=== PATIENT | female | born 1990 | race Caucasian/White ===

== ENCOUNTER 2017-03-14 12:17 | Emergency (ER) | payer SELFPAY ==
[~2017-03-14] VITALS: Ht 167.6 cm; Wt 90.7 kg
[~2017-03-14 12:17] MED LIST: BC; BCP; DIAZ-1 PO; IBU600 PO; LOR5/325 PO; NORG1TAB76 PO; SPIR25TA76 PO
--- NOTE | 2017-03-14 12:54 | ER Report ---
History and Physical Time Seen By MD: 12:53 Hx. of Stated Complaint: pt reports SI, lost job and housing in September, lives with parents. feels like a burden to parents, no plan. HPI/ROS CHIEF COMPLAINT: Suicidal ideation HISTORY OF PRESENT ILLNESS: 27-year-old female patient presents to emergency room with complaint of suicidal ideation. Patient states she's been having a hard several months. She states that she quit her job in September. She states that she is not been able see her specialists since he is moved. She states that she was seeing him for her PCOS. She states that she's been having some difficulties with her parents. She states she is feeling like she is just a drag for her parents. She states that she does not have a plan to commit suicide. She states that she would like to be admitted for evaluation. She states she has seen a counselor in the past but has not been able to keep up with that due to cost. REVIEW OF SYSTEMS: Respiratory: No cough, no dyspnea. Cardiovascular: No chest pain, no palpitations. Gastrointestinal: No vomiting, no abdominal pain. Musculoskeletal: No back pain. Allergies: Coded Allergies: No Known Allergies (Unverified Allergy, Mild, 04/19/08) Home Meds Reported Medications Spironolactone (ALDACTONE) 25 Mg Tablet, 25 MG PO QDAY 04/20/13 [Bc] No Conflict Check 04/20/13 Past Medical/Surgical History Patient has a past medical history of pneumonia, PCOS, depression. Patient denies any surgical history. Patient has a family medical history of CAD, stroke, diabetes. Reviewed Nurses Notes: Yes Hx Smoking: No Hx Substance Use Disorder: No Hx Alcohol Use: No Constitutional Vital Sign - Last 24 Hours 03/14/17 03/14/17 12:20 14:30 Temp 98.1 Pulse 108 79 Resp 16 16 B/P (MAP) 141/81 126/78 (94) Pulse Ox 94 94 O2 Delivery Room Air Room Air Physical Exam General Appearance: The patient is alert, has no immediate need for airway protection and no current signs of toxicity. ENT: Tympanic membranes are pearly-mejia, auditory canals are patent, mucous membranes are moist. Respiratory: Chest is non tender, lungs are clear to auscultation. Cardiac: regular rate and rhythm Gastrointestinal: Abdomen is soft and non tender, no masses, bowel sounds normal. Musculoskeletal: Neck: Neck is supple and non tender. Extremities have full range of motion and are non tender. Skin: No rashes or lesions. Psych: Patient maintains good eye contact, she is tearful when talking about her family. DIFFERENTIAL DIAGNOSIS: After history and physical exam differential diagnosis was considered for depression, suicidal ideation. Medical Decision Making Data Points Result Diagram: 03/14/17 1322 03/14/17 1322 Laboratory Hematology Test 03/14/17 13:10 03/14/17 13:22 Urine Color Straw Urine Clarity Clear Urine pH 6.0 pH (4.8-9.5) Urine Specific [place] 1.009 Urine Protein Negative mg/dL (NEGATIVE) Urine Glucose (UA) Negative mg/dL (NEGATIVE) Urine Ketones Negative mg/dL (NEGATIVE) Urine Blood Negative (NEGATIVE) Urine Nitrite Negative (NEGATIVE) Urine Bilirubin Negative (NEGATIVE) Urine Urobilinogen Negative mg/dL (0.2-1.9) Urine Leukocyte Esterase Small (NEGATIVE) Urine RBC 1 /HPF (0-2/HPF) Urine WBC 11 /HPF (0-5/HPF) Urine Squamous Epithelial Cells Many /LPF (</=FEW) Urine Bacteria Few /HPF (NONE-FEW) Urine Mucus None /HPF (NONE-FEW) Urine HCG, Qualitative Negative (NEGATIVE) Urine Opiates Screen Negative Urine Barbiturates Screen Negative Ur Tricyclic Antidepressants Screen Negative Urine Phencyclidine Screen Negative Urine Amphetamines Screen Negative Urine Benzodiazepines Screen Negative Urine Cocaine Screen Negative Urine Cannabinoids Screen Negative Red Blood Count 4.95 M/uL (4.17-5.56) Mean Corpuscular Volume 89.0 fL (80.0-96.0) Mean Corpuscular Hemoglobin 30.5 pg (26.0-33.0) Mean Corpuscular Hemoglobin Concent 34.2 g/dL (32.0-36.0) Red Cell Distribution Width 13.5 % (11.5-14.5) Mean Platelet Volume 8.3 fL (7.2-11.1) Neutrophils (%) (Auto) 63.7 % (39.4-72.5) Lymphocytes (%) (Auto) 24.7 % (17.6-49.6) Monocytes (%) (Auto) 9.4 % (4.1-12.4) Eosinophils (%) (Auto) 1.3 % (0.4-6.7) Basophils (%) (Auto) 0.9 % (0.3-1.4) Nucleated RBC Relative Count (auto) 0.1 /100WBC Neutrophils # (Auto) 6.2 K/uL (2.0-7.4) Lymphocytes # (Auto) 2.4 K/uL (1.3-3.6) Monocytes # (Auto) 0.9 K/uL (0.3-1.0) Eosinophils # (Auto) 0.1 K/uL (0.0-0.5) Basophils # (Auto) 0.1 K/uL (0.0-0.1) Nucleated RBC Absolute Count (auto) 0.01 K/uL Sodium Level 139 mmol/L (137-145) Potassium Level 3.7 mmol/L (3.5-5.0) Chloride Level 102 mmol/L (98-107) Carbon Dioxide Level 25 mmol/L (22-31) Blood Urea Nitrogen 8 mg/dl (7-18) Creatinine 0.70 mg/dl (0.52-1.04) Glomerular Filtration Rate Calc > 60.0 Random Glucose 119 mg/dl (75-110) Calcium Level 9.5 mg/dl (8.4-10.2) Magnesium Level 2.0 mg/dl (1.7-2.2) Total Bilirubin 0.3 mg/dl (0.2-1.3) Aspartate Amino Transf (AST/SGOT) 24 U/L (0-35) Alanine Aminotransferase (ALT/SGPT) 42 U/L (0-56) Alkaline Phosphatase 73 U/L (0-126) Total Protein 8.1 gm/dl (6.3-8.2) Albumin 4.5 g/dl (3.5-5.0) Thyroid Stimulating Hormone (TSH) 1.20 uIU/ml (0.46-4.68) Salicylates Level < 10 mg/L Salicylate Last Dose Date unk Acetaminophen Level < 10 ug/ml Serum Alcohol < 10 mg/dl Chemistry Test 03/14/17 13:10 03/14/17 13:22 Urine Color Straw Urine Clarity Clear Urine pH 6.0 pH (4.8-9.5) Urine Specific [place] 1.009 Urine Protein Negative mg/dL (NEGATIVE) Urine Glucose (UA) Negative mg/dL (NEGATIVE) Urine Ketones Negative mg/dL (NEGATIVE) Urine Blood Negative (NEGATIVE) Urine Nitrite Negative (NEGATIVE) Urine Bilirubin Negative (NEGATIVE) Urine Urobilinogen Negative mg/dL (0.2-1.9) Urine Leukocyte Esterase Small (NEGATIVE) Urine RBC 1 /HPF (0-2/HPF) Urine WBC 11 /HPF (0-5/HPF) Urine Squamous Epithelial Cells Many /LPF (</=FEW) Urine Bacteria Few /HPF (NONE-FEW) Urine Mucus None /HPF (NONE-FEW) Urine HCG, Qualitative Negative (NEGATIVE) Urine Opiates Screen Negative Urine Barbiturates Screen Negative Ur Tricyclic Antidepressants Screen Negative Urine Phencyclidine Screen Negative Urine Amphetamines Screen Negative Urine Benzodiazepines Screen Negative Urine Cocaine Screen Negative Urine Cannabinoids Screen Negative White Blood Count 9.7 k/uL (4.5-11.0) Red Blood Count 4.95 M/uL (4.17-5.56) Hemoglobin 15.1 g/dL (12.0-16.0) Hematocrit 44.1 % (34.0-47.0) Mean Corpuscular Volume 89.0 fL (80.0-96.0) Mean Corpuscular Hemoglobin 30.5 pg (26.0-33.0) Mean Corpuscular Hemoglobin Concent 34.2 g/dL (32.0-36.0) Red Cell Distribution Width 13.5 % (11.5-14.5) Platelet Count 358 K/uL (150-450) Mean Platelet Volume 8.3 fL (7.2-11.1) Neutrophils (%) (Auto) 63.7 % (39.4-72.5) Lymphocytes (%) (Auto) 24.7 % (17.6-49.6) Monocytes (%) (Auto) 9.4 % (4.1-12.4) Eosinophils (%) (Auto) 1.3 % (0.4-6.7) Basophils (%) (Auto) 0.9 % (0.3-1.4) Nucleated RBC Relative Count (auto) 0.1 /100WBC Neutrophils # (Auto) 6.2 K/uL (2.0-7.4) Lymphocytes # (Auto) 2.4 K/uL (1.3-3.6) Monocytes # (Auto) 0.9 K/uL (0.3-1.0) Eosinophils # (Auto) 0.1 K/uL (0.0-0.5) Basophils # (Auto) 0.1 K/uL (0.0-0.1) Nucleated RBC Absolute Count (auto) 0.01 K/uL Glomerular Filtration Rate Calc > 60.0 Calcium Level 9.5 mg/dl (8.4-10.2) Magnesium Level 2.0 mg/dl (1.7-2.2) Total Bilirubin 0.3 mg/dl (0.2-1.3) Aspartate Amino Transf (AST/SGOT) 24 U/L (0-35) Alanine Aminotransferase (ALT/SGPT) 42 U/L (0-56) Alkaline Phosphatase 73 U/L (0-126) Total Protein 8.1 gm/dl (6.3-8.2) Albumin 4.5 g/dl (3.5-5.0) Thyroid Stimulating Hormone (TSH) 1.20 uIU/ml (0.46-4.68) Salicylates Level < 10 mg/L Salicylate Last Dose Date unk Acetaminophen Level < 10 ug/ml Serum Alcohol < 10 mg/dl Toxicology Test 03/14/17 13:10 03/14/17 13:22 Urine Opiates Screen Negative Urine Barbiturates Screen Negative Ur Tricyclic Antidepressants Screen Negative Urine Phencyclidine Screen Negative Urine Amphetamines Screen Negative Urine Benzodiazepines Screen Negative Urine Cocaine Screen Negative Urine Cannabinoids Screen Negative Salicylates Level < 10 mg/L Salicylate Last Dose Date unk Acetaminophen Level < 10 ug/ml Serum Alcohol < 10 mg/dl Urinalysis Test 03/14/17 13:10 Urine Color Straw Urine Clarity Clear Urine pH 6.0 pH (4.8-9.5) Urine Specific [place] 1.009 Urine Protein Negative mg/dL (NEGATIVE) Urine Glucose (UA) Negative mg/dL (NEGATIVE) Urine Ketones Negative mg/dL (NEGATIVE) Urine Blood Negative (NEGATIVE) Urine Nitrite Negative (NEGATIVE) Urine Bilirubin Negative (NEGATIVE) Urine Urobilinogen Negative mg/dL (0.2-1.9) Urine Leukocyte Esterase Small (NEGATIVE) Urine RBC 1 /HPF (0-2/HPF) Urine WBC 11 /HPF (0-5/HPF) Urine Squamous Epithelial Cells Many /LPF (</=FEW) Urine Bacteria Few /HPF (NONE-FEW) Urine Mucus None /HPF (NONE-FEW) Urine HCG, Qualitative Negative (NEGATIVE) ED Course/Re-evaluation ED Course Patient was admitted exam room, his score obtained. Difficult diagnoses were considered. On examination patient is maintaining good eye contact, rate of speech is appropriate. Patient would become very tearful when talking about her family. The lab work for a behavioral health admission were done. The results were unremarkable. I discussed the case with Dr. Akers, psychiatrist, who did agree to accept the patient for admission. Decision to Disposition Date: Mar 14, 2017 Decision to Disposition Time: 14:16 Depart Departure Latest Vital Signs Vital Signs Date Time Temp Pulse Resp B/P (MAP) Pulse Ox O2 Delivery O2 Flow Rate FiO2 03/14/17 14:30 79 16 126/78 (94) 94 Room Air 03/14/17 12:20 98.1 Impression: Primary Impression: Depression with suicidal ideation Condition: Condition Unchanged Disposition: XFER TO [facility] Referrals: CAITLIN JESUS (PCP) MARTINA DIAZ Mar 14, 2017 12:54
[2017-03-14 13:32] LABS: PLATELET COUNT, AUTOMATED 358 K/uL (150-450)
[2017-03-14 14:30] VITALS: BP 126/78
== END 2017-03-14 14:35 ==
LOC: ER 12:43
DX: F32.9 Major depressive disorder, single episode, unspecified (principal); R45.851 Suicidal ideations
CPT/HCPCS: 36415; 80305; 80320; 80329; 81001; 81025; 82040; 82247; 82310; 82374; 82435; 82565; 82947; 83735; 84075; 84132; 84155; 84295; 84443; 84450; 84460; 84520; 85025; 99285

== ENCOUNTER 2017-03-14 14:21 | Inpatient (IN) | payer SELFPAY ==
[~2017-03-14] VITALS: Ht 167.6 cm; Wt 90.7 kg
[2017-03-14] MEDS ORDERED: ACETAMINOPHEN 325 MG TAB PO PRN (14:50)
[2017-03-14] MEDS ORDERED: MAG HYD/AL HYD/SIMETH 30ML UDC PO PRN (14:50)
[2017-03-14 16:25] VITALS: BP 124/93
[2017-03-15 05:54] VITALS: BP 130/77
[2017-03-15] MEDS: MULTIVITAMINS PO SCH (08:33)
--- NOTE | 2017-03-15 17:07 | HISTORY AND PHYSICAL ---
DATE OF ADMISSION: March 14, 2017 PRESENTING PROBLEM/CHIEF COMPLAINT "I felt really depressed." HISTORY OF PRESENT ILLNESS This is a 27-year-old single female who was interviewed on the morning of 15 March 2017 at approximately 0900 hours. The patient was admitted the previous evening through the emergency room having increasing depression with suicidal ideations with no specific plan. The patient was admitted without incident, and the next morning, the patient was interacting very well with this provider and other treatment team staff. The patient was tearful at times when describing how she has "fights with her parents" with whom she lives. She feels "hopeless" at times. She reports multiple identifiable stressors, including the loss of her job at [employer] in August of last year where she quit after feeling threatened at work. The patient has been unable to find employment. This has resulted in parental conflict. She had to move back in with her parents. The patient also reports a breakup of a relationship that was ongoing for four years. They did not live together, although the patient reports that she felt they had a close relationship, and he spontaneously moved away to [place], and this is an ongoing concern as well. The patient reports financial struggles and that she would "like to go back to school and maybe be a graphic technician," but does not know how to be able to afford it. When asked about depressive symptoms, the patient reports vague depressive symptoms overall. She continues to have interest in playing on the computer and overall denying any significant depressive symptoms. She does say her mood has been down, but this seems to be largely related to the aforementioned identifiable stressors. The patient does report it is hard for her to go to sleep at times, and she does have a sister who is being evaluated for sleep apnea. The patient does admit to feeling overall anxious and being a generalized worrier, including having panic attack-like symptoms when under stressful situations. The patient had recently started a job at [employer]; however, she was unable to complete orientation where she became very anxious and had to quit. The patient denies any PTSD, psychosis, or manic behavior. The patient reports some excessive fears of being lost when she drives to another town. She denies any anorexia, bulimia, OCD, self-harm issues, and she denies any specific somatization symptoms other than emotional distress which includes tearfulness when under stress. MENTAL HEALTH HISTORY The patient has been an inpatient twice on Behavioral Health, although both were brief here at [facility] before, and she left the next day. However , the preceding symptoms seemed to be similar in that she was in conflict with her parents. The patient was prescribed Zoloft in the past which made her reportedly drowsy, and she did not stay on it very long and noticed no benefit. The patient reports having financial limitations to where she cannot afford medications, and this is a grave concern. She has had minimal outpatient therapy in the past, but is not engaged in any now. No history of suicide attempt. FAMILY PSYCHIATRIC HISTORY The patient reports previously that she had a paternal uncle with bipolar disorder, and he had a suicide attempt. No other alcohol or drug abuse or psychiatric concerns in the family. PAST MEDICAL HISTORY Significant for history of polycystic ovarian syndrome. The patient is currently not taking spironolactone that has been prescribed in the past. She denies any other physical ailments. ALLERGIES She has no allergies. SOCIAL HISTORY The patient was born in [place], [place], and raised in [place], [place]. Parents were at the time of her and remained . She has one older sister, most recently living in [place], [place], whom she does not have much contact with. The patient reports her older sister is doing well. The patient has been living with her parents over the last few months as she could not afford to live independently after losing her job working at [employer]. Before that, the patient had worked at the [employer] as a [place] [employer]. The patient graduated from [employer] and attended the [employer]. She received her bachelor's degree in communication. She has never , has no children. She reports her childhood was free of any emotional, physical, or sexual abuse. LEGAL HISTORY None. SUBSTANCE ABUSE HISTORY The patient denies any current abuse of alcohol, nicotine, or illicit substances. The patient does report she may drink too much soda pop. PHYSICAL EXAMINATION Please see emergency room note. Notable for: GENERAL: Polite, cooperative, 27-year-old female. No acute medical distress. Depressed appearing. VITAL SIGNS: Temperature 98.1, pulse 108, respiratory rate 16, blood pressure 141/81, and pulse oximetry 94% on room air. LABORATORY DATA 1. CBC unremarkable. 2. CMP overall unremarkable as well. Random glucose was slightly elevated at 119. 3. TSH 1.20. 4. Urinalysis notable for small leukocyte esterase and 11 white blood cells. Culture is pending. 5. Negative screen. 6. Toxicology screen negative with an undetectable serum alcohol level. MENTAL STATUS EXAMINATION GENERAL APPEARANCE, BEHAVIOR, AND ATTITUDE: This is a heavyset 27-year-old female making partial eye contact at times. The patient is tearful, very cooperative and pleasant. The patient is interacting well. Well groomed. SPEECH: Within normal limits. Regular rate, rhythm, volume, and tone. MOOD: Described as anxious and depressed. AFFECT: Minimally constricted and mood congruent. THOUGHT PROCESSES: Appear goal directed, logical. The patient was inquiring about vocational rehab, denying loose associations or flight of ideas. THOUGHT CONTENT: Free of auditory or visual hallucinations, ideas of reference , thought broadcasting, delusions, obsessions, or compulsions. The patient is admitting to overwhelming anxiety turning into depression and with the onset of suicidal thoughts with no specific plan. The patient is not having any homicidal ideations. SENSORIUM: Clear. COGNITION: Alert and oriented to person, place, time, and situation. MEMORY: Immediate, recent, and remote estimated intact. INTELLIGENCE: Average based on interview. INSIGHT AND JUDGMENT: Considered grossly intact. The patient presenting for treatment after suicidal ideation ensued. ASSESSMENT This is a very polite, cooperative, 27-year-old female who appears to have underlying anxiety disorder which inhibits such things as her ability to drive out of town, and this probably also inhibits her ability to find adequate employment. This may result in the patient having to live at home which is an additional stressor. At this time, we will try Paxil at bedtime and continue to evaluate. The patient will participate in therapy. DIAGNOSES 1. Generalized anxiety disorder. 2. Parent/child conflict. 3. Adjustment disorder with anxious and depressed mood. 4. Multiple social stressors, financial, unemployment, some social isolation likely. PLAN 1. Admit to the unit. 2. Necessary precautions will be implemented. 3. The patient will participate in individual and group therapy. 4. Medications will be addressed and titrated accordingly. I will give a trial of Paxil for overall anxiety control at night. 5. Collateral information will be obtained if necessary. 6. Estimated length of stay is three to five days. MTDD
[2017-03-15] MEDS: DIAZEPAM 10 MG TAB PO ONE ×2 (20:30→21:07)
[2017-03-15] MEDS: PAROXETINE HCL 10 MG TABLET PO SCH ×2 (21:00→21:06)
[2017-03-16 05:52] VITALS: BP 113/72
[2017-03-16] MEDS: MULTIVITAMINS PO SCH ×2 (08:20→08:27)
--- NOTE | 2017-03-16 10:28 | BHS Progress Note ---
S - Subjective Progress Notes Subjective Patient frustrated today, and indicating ongoing stressors related to living with her parents. Patient simultaneously regressing psychologically while living at home. Parents indicate patient had excellent grades, did accomplish a four year degree, and has had periods of extended employment. Patient's parents are questioning whether it is helpful for her to return home. Patient anxious but rejecting Paxil, and overnight pulse oximetry, last evening. Patient argumentative, putting a lot of energy into rejecting care. Will continue to work with her today to address placement, and how she can resolve anxiety. Suicidal Ideation: Resolving Homicidal Ideation: None S - Objective Physical Exam Vital Signs Vital Signs Date Time Temp Pulse Resp B/P (MAP) Pulse Ox O2 Delivery O2 Flow Rate FiO2 03/16/17 05:52 98.7 91 16 113/72 (86) 94 Room Air Hematology Test 03/15/17 11:40 Urine Color Yellow Urine Clarity Slightly-cloudy Urine pH 6.0 pH (4.8-9.5) Urine Specific [place] 1.021 Urine Protein Negative mg/dL (NEGATIVE) Urine Glucose (UA) Negative mg/dL (NEGATIVE) Urine Ketones Negative mg/dL (NEGATIVE) Urine Blood Negative (NEGATIVE) Urine Nitrite Negative (NEGATIVE) Urine Bilirubin Negative (NEGATIVE) Urine Urobilinogen Negative mg/dL (0.2-1.9) Urine Leukocyte Esterase Negative (NEGATIVE) Urine RBC None /HPF (0-2/HPF) Urine WBC 1 /HPF (0-5/HPF) Urine Squamous Epithelial Cells Many /LPF (</=FEW) Urine Bacteria Negative /HPF (NONE-FEW) Urine Mucus Few /HPF (NONE-FEW) Chemistry Test 03/15/17 11:40 Urine Color Yellow Urine Clarity Slightly-cloudy Urine pH 6.0 pH (4.8-9.5) Urine Specific [place] 1.021 Urine Protein Negative mg/dL (NEGATIVE) Urine Glucose (UA) Negative mg/dL (NEGATIVE) Urine Ketones Negative mg/dL (NEGATIVE) Urine Blood Negative (NEGATIVE) Urine Nitrite Negative (NEGATIVE) Urine Bilirubin Negative (NEGATIVE) Urine Urobilinogen Negative mg/dL (0.2-1.9) Urine Leukocyte Esterase Negative (NEGATIVE) Urine RBC None /HPF (0-2/HPF) Urine WBC 1 /HPF (0-5/HPF) Urine Squamous Epithelial Cells Many /LPF (</=FEW) Urine Bacteria Negative /HPF (NONE-FEW) Urine Mucus Few /HPF (NONE-FEW) Urinalysis Test 03/15/17 11:40 Urine Color Yellow Urine Clarity Slightly-cloudy Urine pH 6.0 pH (4.8-9.5) Urine Specific [place] 1.021 Urine Protein Negative mg/dL (NEGATIVE) Urine Glucose (UA) Negative mg/dL (NEGATIVE) Urine Ketones Negative mg/dL (NEGATIVE) Urine Blood Negative (NEGATIVE) Urine Nitrite Negative (NEGATIVE) Urine Bilirubin Negative (NEGATIVE) Urine Urobilinogen Negative mg/dL (0.2-1.9) Urine Leukocyte Esterase Negative (NEGATIVE) Urine RBC None /HPF (0-2/HPF) Urine WBC 1 /HPF (0-5/HPF) Urine Squamous Epithelial Cells Many /LPF (</=FEW) Urine Bacteria Negative /HPF (NONE-FEW) Urine Mucus Few /HPF (NONE-FEW) Muscle Strength and Tone: WNL Gait and Station: Steady S Medications Reviewed: Side Effects, Benefits of Medication, Risks Allergies Reviewed: Yes Mental Status Exam General Appearance: Casual, Well Groomed, Good Eye Contact, Cooperative, Polite , Good Interaction, Tearful, Psychomotor Agitation, No Psychomotor Retardation, No Bizarre Mannerisms, No Tics Speech: Clear, Spontaneous, Normal Rate, Normal Rhythm, Normal Volume, Normal Tone, Slurred Mood: Dysthmic/Depressed (anxious appearing) Affect: Sad, Withdrawn, Tearful, Anxious Thought Process: Organized, No Loose Associations, No Flight of Ideas Thought Content: Suicidal Ideation (resolving), No Homicidal Ideation, No Delusions, No Auditory Halllucinations, No Visual Hallucinations, No Thought Broadcasting, No Ideas of Reference, No Obsessions, No Compulsions Sensorium: Clear Cognition: Alert & Oriented-Person, Alert & Oriented-Place, Alert & Oriented- Time, [id number] Memory: Immediate, Recent, Remote Intelligence: Average Insight Judgment: Poor (improving some. ) [facility] Assessment and Plan [id number] Encounter Date: Mar 16, 2017 [id number] Encounter Time: 08:50 [facility] Plan: Admin/Titrate Meds, Educate Patient Tobacco Medications: Not Appropriate Condition Problems: (1) Generalized anxiety disorder Status: Chronic 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 Condition 1. continue to encourage growth in this patient who is regressing. 2. recommend Paxil, and pulse ox testing tonight. ROXANE ELLINGTON MD Mar 16, 2017 10:28
[2017-03-16] MEDS: PAROXETINE HCL 10 MG TABLET PO SCH (21:00)
[2017-03-17 06:27] VITALS: BP 121/82
[2017-03-17] MEDS: MULTIVITAMINS PO SCH (08:12)
--- NOTE | 2017-03-17 16:42 | [facility] Discharge Summary ---
[facility] Discharge Summary Vqwy-cl-Asif Encounter Date: Mar 17, 2017 [id number] Encounter Time: 09:30 Reason-Hosp/Final Diag (DSM-V): (1) Generalized anxiety disorder Status: Chronic Hospital Course & Plan: Pt was admitted to [facility]. She was offered a trial of Paxil for anxiety disorder but she did not want to take it. She also declined a trial of continuous pulse-ox monitoring through the night to screen for sleep- apnea. She denied suicidal ideation throughout her hospital stay. She attended groups and utilized educational material regarding anxiety from [facility]. She seemed to connect in a positive way with cognitive behavioral strategies and she was motivated to pursue out-patient therapy with this focus. At first when she was admitted the focus was upon finding her a residential setting after discharge since it was the team's understanding that she could not return home. Parents then decided that they would accept her back home and she became interested in this option. At our treatment team meeting on day of discharge pt's mother expressed displeasure at patient's treatment, saying that it took too long for mother to receive phone calls back from the unit after she called to check on pt. However patient herself was expressing gratitude to team members and enthusiasm over what she had learned in group, and she was motivated to seek her own outpatient follow up. Patient's parents were clearly very supportive of patient. We discussed some possible options for outpatient follow up, but family and pt said they will pursue their own treatment options. 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 Physical Exam Latest Vital Signs Vital Signs 03/16/17 03/17/17 05:52 06:27 Temp 98.9 Pulse 83 Resp 16 B/P (MAP) 121/82 (95) Pulse Ox 91 O2 Delivery Room Air Mental Status Exam General Appearance: Casual, Well Groomed, Good Eye Contact, Cooperative, Polite , Good Interaction Speech: Clear, Spontaneous, Normal Rate, Normal Rhythm, Normal Volume, Normal Tone Mood: Euthymic Affect: Full and Appropriate, Calm Thought Process: Organized, Logical, Goal Directed, No Loose Associations, No Flight of Ideas Thought Content: No Suicidal Ideation, No Homicidal Ideation, No Delusions, No Auditory Halllucinations, No Visual Hallucinations, No Thought Broadcasting, No Ideas of Reference, No Obsessions, No Compulsions, No Other Sensorium: Clear Cognition: Alert & Oriented-Person, Alert & Oriented-Place, Alert & Oriented- Time, Cccqe-Meldbskx-Soatjocny Memory: Immediate, Recent, Remote Intelligence: Average Insight Judgment: Good Departure Condition: Improved Discharge to: Home Discharge Instructions Home Meds No Active Prescriptions or Reported Meds Diet: Regular Activity: As Tolerated Special Instructions: Follow up with outpatient therapy. Follow up with Primary Care Provider. Call Crisis Line should symptoms return. Flu shot is up to date. DANNA HAYWOOD MD Mar 17, 2017 16:42
== END 2017-03-17 10:40 | disposition home or self-care (01) | DRG 880 ==
LOC: BHS 14:21
PROVIDERS: ADMIT Psychiatry & Neurology Psychiatry; ATTEND Psychiatry & Neurology Psychiatry
DX: F41.1 Generalized anxiety disorder (principal); R45.851 Suicidal ideations; F43.23 Adjustment disorder with mixed anxiety and depressed mood; Z62.820 Parent-biological child conflict; E28.2 Polycystic ovarian syndrome; Z56.0 Unemployment, unspecified; Z81.8 Family history of other mental and behavioral disorders
CPT/HCPCS: 81001; 87088; 90853